=== PATIENT | female | born 1980 | race Caucasian/White ===

== ENCOUNTER 2024-12-14 09:44 | Emergency (ER) | payer MEDICAID ==
[~2024-12-14] VITALS: Ht 165.1 cm; Wt 91.8 kg
[2024-12-14 09:50] VITALS: BP 118/75; PULSE 90; O2SAT 96
[2024-12-14] MEDS ORDERED: CEPH-585 PO (10:46)
[2024-12-14 11:08] VITALS: RESP 16
[2024-12-14] MEDS: ketorolac trometh 30MG/ML vial 30 MG/ML VIAL IM ONE (11:08)
[2024-12-14] MEDS: HYDROcodone/acetaminophen 5mg/325mg tablet PO ONE (11:08)
[2024-12-14] MEDS: dexamethasone sod phosphate 10mg/ml inj IM STA (11:08)
[2024-12-14 11:19] VITALS: TEMP 98.3
== END 2024-12-14 11:28 | disposition home or self-care (01) ==
LOC: ER 09:45
DX: M79.641 Pain in right hand (principal); F15.10 Other stimulant abuse, uncomplicated; Z88.6 Allergy status to analgesic agent; Z88.2 Allergy status to sulfonamides; Z88.1 Allergy status to other antibiotic agents
CPT/HCPCS: 96372; 99284; J1100; J1885